=== PATIENT | female | born 1980 | race African-American/Black ===

== ENCOUNTER 2023-10-12 15:01 | Emergency (ER) | payer BC, SELFPAY ==
[2023-10-12] MEDS ORDERED: Acetaminophen 500 MG TAB ONE (16:02)
[2023-10-12 17:02] LABS: SARS-CoV-2 NAA Rapid Test Not Detected (NotDetected)
== END 2023-10-12 17:19 | disposition home or self-care (01) ==
LOC: CSHERS 15:01
DX: B34.9 Viral infection, unspecified (principal); I10 Essential (primary) hypertension; F17.210 Nicotine dependence, cigarettes, uncomplicated
CPT/HCPCS: 87081; 87430; 99283